=== PATIENT | male | born 1940 | race Caucasian/White ===

== ENCOUNTER 2018-05-31 09:43 | Outpatient (CLI) | payer MEDICARE, OTHER, SELFPAY ==
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
== END 2018-05-31 10:03 ==
PROVIDERS: PCP Internal Medicine; Visit Provider Physician Assistant Medical
DX: M51.17 Intervertebral disc disorders with radiculopathy, lumbosacral region (principal); M47.27 Other spondylosis with radiculopathy, lumbosacral region; Z18.89 Other specified retained foreign body fragments; M54.16 Radiculopathy, lumbar region
CPT/HCPCS: 70200; 72110

== ENCOUNTER 2018-06-02 01:42 | Outpatient (CLI) | payer MEDICARE, OTHER, SELFPAY ==
--- NOTE | 2018-06-02 10:47 | DI.MRI_ITS ---
SYMPTOMS/DIAGNOSIS: LUMBAR RADICULOPATHY LT, M54.16 MRI OF THE LUMBAR SPINE: Routine examination. No priors. The conus medullaris has a normal appearance and location. At L 5 - S 1 there is diffuse disc bulge. No significant central spinal canal stenosis is seen. No significant neural foraminal stenosis is present. At L 4 - 5 there is a moderate sized left paracentral disc herniation with extrusion posterior to the L 5 vertebral body. There is compression of the left L 5 nerve root. Degenerative changes of the facets and ligamentum of flavum are present resulting in moderate central spinal canal stenosis. There is mild narrowing of the right neural foramen but no compression of the exiting nerve root. No significant left neural foraminal stenosis is seen. There is disc desiccation present. At L 3 - 4 there is a diffuse disc bulge. There are degenerative changes of the facets and ligamentum of flavum with minimal narrowing of the central spinal canal. There is mild narrowing of the neural foramen bilaterally but no significant compression of the exiting nerve root is identified. At L 2 - 3 there is a mild diffuse bulge and disc desiccation. No significant central spinal canal stenosis or right neural foraminal stenosis is seen. There is mild narrowing of the left neural foramen but no compression of the exiting nerve root is present. L 1 - 2 shows no focal disc herniation, central spinal canal or neural foraminal stenosis. Apart from the degenerative endplate signal changes, no significant marrow signal abnormality is identified. IMPRESSION: 1. Moderate sized left paracentral disc herniation at L 4 - 5 with extrusion posterior to the L 5 vertebral body. There is left lateral recess stenosis compresses the left L 5 nerve root. 2. Multi-level degenerative changes of the lumbar spine resulting in central spinal canal and neural foraminal stenosis as described above.
== END 2018-06-02 02:02 ==
PROVIDERS: PCP Internal Medicine; Visit Provider Physician Assistant Medical
DX: M54.16 Radiculopathy, lumbar region (principal); M51.26 Other intervertebral disc displacement, lumbar region; M51.16 Intervertebral disc disorders with radiculopathy, lumbar region
CPT/HCPCS: 72148

== ENCOUNTER 2019-03-29 09:28 | Outpatient (REF) | payer MEDICARE, OTHER, SELFPAY ==
[2019-03-29 19:54] LABS: Calculated LDL 142 mg/dL; Cholesterol 189 mg/dL (<200); Glucose 100 mg/dL (74-106); HDL Cholesterol 36 mg/dL (40-60); Triglyceride 59 mg/dL (<150)
[2019-04-02 11:00] LABS: PSA, Screening 0.7 ng/mL (0.0-6.5)
== END 2019-03-29 09:48 ==
LOC: NCHCN 09:28
PROVIDERS: PCP Internal Medicine; Visit Provider Nurse Practitioner Family
DX: N40.0 Benign prostatic hyperplasia without lower urinary tract symptoms (principal); Z13.1 Encounter for screening for diabetes mellitus; Z13.6 Encounter for screening for cardiovascular disorders; Z12.5 Encounter for screening for malignant neoplasm of prostate; E78.89 Other lipoprotein metabolism disorders
CPT/HCPCS: 80061; 82947; 84153

== ENCOUNTER 2020-03-21 10:06 | Outpatient (REF) | payer OTHER, SELFPAY ==
[2020-03-21 17:04] LABS: ALT 41 U/L (16-63); AST 22 U/L (15-37); Albumin 3.7 g/dL (3.4-5.0); Alkaline Phosphatase 51 U/L (46-116); Anion Gap 9.3 mmol/L (3-11); BUN 18 mg/dL (7-18); Bilirubin, Total 0.7 mg/dL (0.2-1.0); CO2 28.7 mmol/L (21.0-32.0); CREATININE 1.11 mg/dL (0.70-1.30); Calcium 8.9 mg/dL (8.5-10.1); Calculated LDL 137 mg/dL (<100); Chloride 102 mmol/L (98-107); Cholesterol 198 mg/dL (<200); Glucose 107 mg/dL (74-106); HDL Cholesterol 38 mg/dL (40-60); Potassium 4.2 mmol/L (3.5-5.1); Sodium 140 mmol/L (136-145); Total Protein 7.3 g/dL (6.4-8.2); Triglyceride 117 mg/dL (<150)
== END 2020-03-21 10:26 ==
LOC: NCHCN 10:06
PROVIDERS: PCP Internal Medicine; Visit Provider Physician Assistant
DX: E78.5 Hyperlipidemia, unspecified (principal); N40.0 Benign prostatic hyperplasia without lower urinary tract symptoms; I82.402 Acute embolism and thrombosis of unspecified deep veins of left lower extremity
CPT/HCPCS: 80053; 80061

== ENCOUNTER 2020-11-18 10:22 | Outpatient (REF) | payer OTHER, SELFPAY ==
[2020-11-18 20:19] LABS: Abs Immature Grans 0.08 10^3/uL (0.0-0.06); Absolute Basophil Count 0.07 10^3/uL (0.0-0.2); Absolute Eosinophil Count 0.19 10^3/uL (0.0-0.7); Absolute Monocyte Count 0.64 10^3/uL (0.1-0.8); Absolute Neutrophil Count 3.51 10^3/uL (1.2-6.7); Eosinophils % 2.8; HCT 48.7 % (40.0-50.0); HGB 16.2 g/dL (13.5-17.5); Immature Grans % 1.2; Lymphocytes % 34.8; MCHC 33.3 % (32.0-36.0); MCV 90.2 fL (80-95); MPV 10.5 fL (8.0-11.0); Monocytes % 9.3; Neutrophils % 50.9; Nucleated RBC 0 %; Platelet Count 311 10^3/uL (130-400); RDW 14.3 % (11.8-14.1); RDW-SD 47.4 fL; WBC 6.89 10^3/uL (4.4-10.8)
[2020-11-18 20:54] LABS: Diff Comment Diff Reviewed; RBC Morphology Normal
== END 2020-11-18 10:23 | disposition home or self-care (01) ==
LOC: NCHCN 10:22
PROVIDERS: PCP Internal Medicine; Referring Provider Nurse Practitioner Family; Visit Provider Nurse Practitioner Family
DX: R63.4 Abnormal weight loss (principal); R19.7 Diarrhea, unspecified
CPT/HCPCS: 85025

== ENCOUNTER 2021-06-24 20:20 | Outpatient (REF) | payer MEDICARE, SELFPAY ==
[2021-06-24 20:49] LABS: ALT 31 U/L (16-63); AST 27 U/L (15-37); Albumin 3.7 g/dL (3.4-5.0); Alkaline Phosphatase 51 U/L (46-116); Anion Gap 6.3 mmol/L (3-11); BUN 19 mg/dL (7-18); Bilirubin, Total 0.6 mg/dL (0.2-1.0); CO2 25.7 mmol/L (21.0-32.0); CREATININE 0.9 mg/dL (0.70-1.30); Calcium 8.9 mg/dL (8.5-10.1); Chloride 106 mmol/L (98-107); Glucose 124 mg/dL (74-106); Potassium 4.8 mmol/L (3.5-5.1); Sodium 138 mmol/L (136-145); Total Protein 7.2 g/dL (6.4-8.2)
== END 2021-06-24 20:21 | disposition home or self-care (01) ==
LOC: NCHCN 20:20
PROVIDERS: PCP Internal Medicine; Visit Provider Nurse Practitioner Family
DX: E78.5 Hyperlipidemia, unspecified (principal); N40.0 Benign prostatic hyperplasia without lower urinary tract symptoms
CPT/HCPCS: 80053

== ENCOUNTER 2022-06-28 13:57 | Outpatient (REF) | payer MEDICARE, SELFPAY ==
[2022-06-28 20:21] LABS: ALT 37 U/L (16-63); AST 28 U/L (15-37); Albumin 3.6 g/dL (3.4-5.0); Alkaline Phosphatase 60 U/L (46-116); BUN 18 mg/dL (7-18); Bilirubin, Total 0.6 mg/dL (0.2-1.0); CREATININE 1.1 mg/dL (0.70-1.30); Calcium 8.8 mg/dL (8.5-10.1); Chloride 107 mmol/L (98-107); Estimated GFR 67.86 (mL/min/1.73m2); Glucose 123 mg/dL (74-106); Potassium 4.1 mmol/L (3.5-5.1); Sodium 140 mmol/L (136-145); Total Protein 7.9 g/dL (6.4-8.2)
== END 2022-06-28 13:58 | disposition home or self-care (01) ==
LOC: NCHCN 13:57
PROVIDERS: PCP Internal Medicine; Visit Provider Nurse Practitioner Family
DX: E78.5 Hyperlipidemia, unspecified (principal); R73.9 Hyperglycemia, unspecified
CPT/HCPCS: 80053

== ENCOUNTER 2023-07-25 17:23 | Outpatient (REF) | payer MEDICARE, SELFPAY ==
[2023-07-25 19:18] LABS: Anion Gap 10.2 mmol/L (3-11); BUN 18 mg/dL (7-18); CO2 25.8 mmol/L (21.0-32.0); Calcium 9.1 mg/dL (8.5-10.1); Chloride 104 mmol/L (98-107); Estimated GFR 75.61 (mL/min/1.73m2); Glucose 111 mg/dL (74-106); Potassium 4.1 mmol/L (3.5-5.1); Sodium 140 mmol/L (136-145)
[2023-07-26 18:25] LABS: PSA, Screening 0.7 ng/mL (<=6.5)
== END 2023-07-25 17:24 | disposition home or self-care (01) ==
LOC: NCHCN 17:23
PROVIDERS: PCP Internal Medicine; Visit Provider Nurse Practitioner Family
DX: N40.1 Benign prostatic hyperplasia with lower urinary tract symptoms (principal); Z12.5 Encounter for screening for malignant neoplasm of prostate
CPT/HCPCS: 80048; 84153

== ENCOUNTER 2024-07-23 13:17 | Outpatient (REF) | payer MEDICARE, SELFPAY ==
[2024-07-23 20:20] LABS: Anion Gap 7.4 mmol/L (3-11); BUN 15 mg/dL (7-18); CO2 26.6 mmol/L (21.0-32.0); Calcium 8.8 mg/dL (8.5-10.1); Chloride 106 mmol/L (98-107); Estimated GFR 75.14 (mL/min/1.73m2); Glucose 110 mg/dL (74-106); Potassium 4.4 mmol/L (3.5-5.1); Sodium 140 mmol/L (136-145)
== END 2024-07-23 13:18 | disposition home or self-care (01) ==
LOC: NCHCN 13:17
PROVIDERS: PCP Internal Medicine; Visit Provider Nurse Practitioner Family
DX: R73.03 Prediabetes (principal)
CPT/HCPCS: 80048